=== PATIENT | male | born 1995 | race Asian ===

== ENCOUNTER 2021-07-31 18:23 | Inpatient (IN) | payer MEDICAID ==
[~2021-07-31] VITALS: Ht 172.7 cm; Wt 86.6 kg
[2021-07-31] MEDS ORDERED: LORazepam 2 MG TABLET PO ONE (19:00)
[2021-07-31 19:30] LABS: BASOPHILS % (AUTO) 0.5 % (0.0-2.0); EOSINOPHILS % (AUTO) 0.5 % (1.0-6.0); HEMATOCRIT 49.8 % (41-53); HEMOGLOBIN 16.7 g/dL (13.5-17.5); MEAN CORPUSCULAR HEMOGLOBIN 28.2 pg (26.0-34.0); MEAN CORPUSCULAR HGB CONC 33.5 G/dL (31.0-37.0); MEAN CORPUSCULAR VOLUME 84 fL (80-100); MONOCYTES # (AUTO) 1.3 K/uL (0.1-1.0); MONOCYTES % (AUTO) 6.2 % (2.0-9.0); NEUTROPHILS # (AUTO) 18.2 K/uL (1.8-7.7); NEUTROPHILS % (AUTO) 83.8 % (40.0-70.0); PLATELET COUNT (AUTO) 298 K/uL (150-450); RED BLOOD CELL COUNT(AUTO) 5.92 MIL/uL (4.50-5.90); RED CELL DISTRIBUTION WIDTH 13.2 % (11.5-14.5)
[2021-07-31 19:39] LABS: ANION GAP 8 mmol/L (8-16); CALCIUM, TOTAL 8.6 mg/dL (8.8-10.5); CARBON DIOXIDE 27 mmol/L (22-29); CHLORIDE 102 mmol/L (98-107); CREATININE 0.92 mg/dL (0.60-1.30); GLOMERULAR FILTR. RATE CALC > 60 mL/min (>60); GLUCOSE,RANDOM 97 mg/dL (70-110); POTASSIUM 3.6 mmol/L (3.5-5.1); SODIUM SERUM 137 mmol/L (136-145); UREA NITROGEN, BLOOD 7 mg/dL (7-18)
[2021-07-31 19:46] LABS: ALANINE AMINOTRANSFERASE 46 U/L (12-78); ALKALINE PHOSPHATASE 100 U/L (46-116); ASPARTATE AMINOTRANSFERASE 22 U/L (15-37); BILIRUBIN,TOTAL 0.4 mg/dL (0.1-1.0); TOTAL PROTEIN, SERUM 8.4 g/dL (6.4-8.2)
[2021-07-31 20:16] LABS: ACETAMINOPHEN < 2 mcg/mL (10-30)
[2021-07-31 20:25] LABS: APPEARANCE,URINE CLEAR (CLEAR); BILIRUBIN,URINE NEGATIVE (NEGATIVE); GLUCOSE, URINE (UA) NEGATIVE (NEGATIVE); KETONES,URINE NEGATIVE (NEGATIVE); LEUKOCYTE ESTERASE ,URINE NEGATIVE (NEGATIVE); NITRATE,URINE NEGATIVE (NEGATIVE); OCCULT BLOOD,URINE SMALL (NEGATIVE); PH,URINE 6.5 (5.0-8.0); PROTEIN,URINE NEGATIVE (NEGATIVE); UROBILINOGEN,URINE 0.2 mg/dL (<=1.0)
[2021-07-31 20:28] LABS: COVID AG,FIA SOURCE NASOPHARYNGEAL
[2021-07-31 20:29] LABS: AMPHET/METH SCREEN,URINE NEGATIVE (NEGATIVE); BARBITURATE SCREEN, URINE NEGATIVE (NEGATIVE); BENZODIAZEPINES SCREEN,URINE NEGATIVE (NEGATIVE); CANNABINOID SCREEN,URINE NEGATIVE (NEGATIVE); COCAINE SCREEN,URINE NEGATIVE (NEGATIVE); METHADONE SCREEN, URINE NEGATIVE (NEGATIVE); OPIATE SCREEN,URINE NEGATIVE (NEGATIVE)
[2021-07-31 20:31] LABS: PHENCYCLIDINE SCREEN,URINE NEGATIVE (NEGATIVE)
[2021-07-31] MEDS ORDERED: PALIPERIDONE 1.5 MG ER TABLET PO ONE ×2 (20:45→21:00)
[2021-07-31] MEDS ORDERED: PARoxetine HCL 20 MG TABLET PO ONE (20:45)
[2021-07-31] MEDS ORDERED: QUEtiapine FUMARATE 100 MG TABLET PO PRN (21:15)
[2021-07-31 21:28] LABS: BACTERIA,URINE None Seen /HPF (None Seen); RBC,URINE None Seen /HPF (0-2); SQUAMOUS EPITHELIAL CELL,UR Rare /LPF (None Seen); WBC,URINE 0-2 /HPF (0-5)
[2021-08-01 01:06] VITALS: BP 144/84
[2021-08-01] MEDS: LORazepam 2 MG TABLET PO PRN ×3 (01:08→08:59)
[2021-08-01] MEDS: ZOLPIDEM TARTRATE 10 MG TABLET PO PRN ×2 (01:08→20:09)
[2021-08-01 01:16] VITALS: BP 142/84
[2021-08-01 01:24] LABS: CHOL/HDL RATIO 4.7 (4.2-7.3); CHOLESTEROL 160 mg/dL (131-200); FREE T4 (FREE THYROXINE) 1.29 ng/dL (0.76-1.46); HDL CHOLESTEROL 34 mg/dL (40-60); LDL CHOL (CALC.) 80 mg/dL (0-130); THYROID STIMULATING HORMONE 0.58 uIU/mL (0.36-3.74); TRIGLYCERIDES 229 mg/dL (15-150)
[2021-08-01 05:13] VITALS: BP 132/81
[2021-08-01 08:27] VITALS: BP 115/65
[2021-08-01] MEDS ORDERED: NICOTINE 14 MG/24 HOUR PATCH TD PRN (09:30)
[2021-08-01] MEDS ORDERED: LOPERAMIDE HCL 2 MG CAPSULE PO PRN (09:30)
[2021-08-01] MEDS ORDERED: CloNIDine HCL 0.1 MG TABLET PO PRN (09:30)
[2021-08-01] MEDS ORDERED: ONDANSETRON HCL 4 MG TABLET PO PRN (09:30)
[2021-08-01] MEDS ORDERED: ACETAMINOPHEN 325 MG TABLET PO PRN (09:30)
[2021-08-01] MEDS ORDERED: PETROLATUM,WHITE 28 GM JELLY TP PRN (09:30)
[2021-08-01] MEDS ORDERED: MAGNESIUM HYDROXIDE SUSPENSION 30 ML UDCUP PO PRN (09:30)
[2021-08-01] MEDS ORDERED: ALBUTEROL SULFATE HFA 90 MCG/PUFF 8 GM INHALER IH PRN (09:30)
[2021-08-01] MEDS ORDERED: DOCUSATE SODIUM 100 MG CAPSULE PO PRN (09:30)
[2021-08-01] MEDS ORDERED: GuaiFENesin/D-METHORPHAN [SUGAR-FREE] 200-20MG/10 ML SYRUP UDCUP PO PRN (09:30)
[2021-08-01] MEDS ORDERED: MAG HYDROX/AL HYDROX/SIMETH ES 30 ML SUSPENSION UDCUP PO PRN (09:30)
[2021-08-01] MEDS ORDERED: IBUPROFEN 400 MG TABLET PO PRN (09:30)
[2021-08-01] MEDS: BusPIRone HCL 5 MG TABLET PO SCH ×3 (12:58→20:08)
[2021-08-01 16:16] VITALS: BP 112/60
[2021-08-01] MEDS: MELATONIN 5 MG TABLET PO SCH (20:07)
[2021-08-01] MEDS: PALIPERIDONE 6 MG ER TABLET PO SCH (20:07)
[2021-08-01] MEDS: PARoxetine HCL 20 MG TABLET PO SCH (20:08)
[2021-08-02 07:24] LABS: BASOPHILS % (AUTO) 0.9 % (0.0-2.0); EOSINOPHILS % (AUTO) 3.8 % (1.0-6.0); LYMPHOCYTES # (AUTO) 4.4 K/uL (1.0-4.8); MEAN CORPUSCULAR HEMOGLOBIN 28.3 pg (26.0-34.0); MEAN CORPUSCULAR HGB CONC 33.3 G/dL (31.0-37.0); MEAN CORPUSCULAR VOLUME 85 fL (80-100); MONOCYTES # (AUTO) 1.2 K/uL (0.1-1.0); MONOCYTES % (AUTO) 8.6 % (2.0-9.0); NEUTROPHILS # (AUTO) 7.2 K/uL (1.8-7.7); NEUTROPHILS % (AUTO) 53.7 % (40.0-70.0); PLATELET COUNT (AUTO) 272 K/uL (150-450); RED BLOOD CELL COUNT(AUTO) 5.64 MIL/uL (4.50-5.90); RED CELL DISTRIBUTION WIDTH 13.2 % (11.5-14.5)
[2021-08-02 08:15] VITALS: BP 134/81
[2021-08-02] MEDS: BusPIRone HCL 5 MG TABLET PO SCH ×3 (10:17→20:34)
[2021-08-02 16:09] VITALS: BP 122/69
[2021-08-02] MEDS: PALIPERIDONE 6 MG ER TABLET PO SCH (20:34)
[2021-08-02] MEDS: PARoxetine HCL 20 MG TABLET PO SCH (20:35)
[2021-08-02] MEDS: MELATONIN 5 MG TABLET PO SCH (20:35)
[2021-08-02] MEDS: ZOLPIDEM TARTRATE 10 MG TABLET PO PRN (23:37)
[2021-08-03 01:19] VITALS: BP 144/84
[2021-08-03 08:17] VITALS: BP 107/60
[2021-08-03] MEDS: BusPIRone HCL 5 MG TABLET PO SCH ×3 (09:07→20:32)
[2021-08-03 16:22] VITALS: BP 103/65
[2021-08-03] MEDS: PALIPERIDONE 6 MG ER TABLET PO SCH (20:31)
[2021-08-03] MEDS: PARoxetine HCL 20 MG TABLET PO SCH (20:32)
[2021-08-03] MEDS: MELATONIN 5 MG TABLET PO SCH (20:33)
[2021-08-04] MEDS: ZOLPIDEM TARTRATE 10 MG TABLET PO PRN ×2 (00:19→23:52)
[2021-08-04 01:00] VITALS: BP 123/67
[2021-08-04 08:19] VITALS: BP 128/68
[2021-08-04] MEDS: BusPIRone HCL 5 MG TABLET PO SCH ×3 (09:02→20:32)
[2021-08-04 16:22] VITALS: BP 105/63
[2021-08-04] MEDS: MELATONIN 5 MG TABLET PO SCH (20:32)
[2021-08-04] MEDS: PALIPERIDONE 6 MG ER TABLET PO SCH (20:32)
[2021-08-04] MEDS: PARoxetine HCL 20 MG TABLET PO SCH (20:32)
[2021-08-04] MEDS: LORazepam 2 MG TABLET PO PRN (23:52)
[2021-08-05 00:35] VITALS: BP 101/64
[2021-08-05] MEDS: LORazepam 2 MG TABLET PO PRN (07:13)
[2021-08-05 08:14] VITALS: BP 113/63
[2021-08-05] MEDS: BusPIRone HCL 5 MG TABLET PO SCH (09:40)
[2021-08-05] MEDS ORDERED: BUSP5TAB20 PO (12:20)
[2021-08-05] MEDS ORDERED: PALI6TAB15 PO (12:21)
[2021-08-05] MEDS ORDERED: PARO-38 PO (12:21)
[2021-08-05] MEDS ORDERED: MELA5TAB40 PO (12:21)
== END 2021-08-05 15:27 | disposition home or self-care (01) | DRG 750 ==
LOC: EMS 18:28 → B2S 23:03
DX: F25.1 Schizoaffective disorder, depressive type (principal); R45.851 Suicidal ideations; Z59.0 Homelessness; D72.829 Elevated white blood cell count, unspecified; E78.00 Pure hypercholesterolemia, unspecified; F10.10 Alcohol abuse, uncomplicated; G47.00 Insomnia, unspecified; Z20.822 Contact with and (suspected) exposure to COVID-19; R00.0 Tachycardia, unspecified; F19.10 Other psychoactive substance abuse, uncomplicated; F41.9 Anxiety disorder, unspecified; K59.00 Constipation, unspecified; Z79.899 Other long term (current) drug therapy; Z91.5 Personal history of self-harm; Z88.2 Allergy status to sulfonamides; Z71.41 Alcohol abuse counseling and surveillance of alcoholic
CPT/HCPCS: 71045; 80053; 80061; 81001; 84439; 84443; 85025; 87040; 99285; G0480; G0481; Q9967; 36415-L1; 36415-TC